=== PATIENT | female | born 1960 | race Caucasian/White ===

== ENCOUNTER 2022-01-26 09:22 | Emergency (ER) | payer OTHER ==
[~2022-01-26] VITALS: Wt 93.0 kg
[2022-01-26] MEDS ORDERED: IBU800 M2 PO (12:25)
[2022-01-26] MEDS ORDERED: ULTRAM50 MG PO (12:26)
== END 2022-01-26 14:37 | disposition home or self-care (01) ==
LOC: ED 09:22
DX: S83.8X2A Sprain of other specified parts of left knee, initial encounter (principal); Z88.0 Allergy status to penicillin; X50.0XXA Overexertion from strenuous movement or load, initial encounter; Y93.89 Activity, other specified; Y92.89 Other specified places as the place of occurrence of the external cause; Y99.8 Other external cause status

== ENCOUNTER 2022-06-14 12:13 | Emergency (ER) | payer OTHER ==
[~2022-06-14] VITALS: Ht 157.4 cm; Wt 93.0 kg
[~2022-06-14 12:13] MED LIST: IBU800 M2 PO; ULTRAM50 MG PO
== END 2022-06-14 16:25 | disposition home or self-care (01) ==
LOC: ED 12:13
DX: S61.210A Laceration without foreign body of right index finger without damage to nail, initial encounter (principal); Z88.0 Allergy status to penicillin; W45.8XXA Other foreign body or object entering through skin, initial encounter; Y93.89 Activity, other specified; Y92.89 Other specified places as the place of occurrence of the external cause; Y99.9 Unspecified external cause status

== ENCOUNTER 2023-05-19 22:14 | Emergency (ER) | payer OTHER ==
[~2023-05-19] VITALS: Ht 154.9 cm; Wt 100.2 kg
[2023-05-19] MEDS ORDERED: CYCLOBENZAPRINE5 M3 PO (22:38)
[2023-05-19] MEDS ORDERED: METHOCARBAMOL500 M1 PO (23:25)
[2023-05-19] MEDS ORDERED: NAPROXEN250 MG PO (23:25)
== END 2023-05-19 23:33 | disposition home or self-care (01) ==
LOC: ED 22:14
DX: S29.012A Strain of muscle and tendon of back wall of thorax, initial encounter (principal); I10 Essential (primary) hypertension; M19.90 Unspecified osteoarthritis, unspecified site; Z88.0 Allergy status to penicillin; F17.200 Nicotine dependence, unspecified, uncomplicated; X58.XXXA Exposure to other specified factors, initial encounter; Y93.89 Activity, other specified; Y92.009 Unspecified place in unspecified non-institutional (private) residence as the place of occurrence of the external cause; Y99.8 Other external cause status

== ENCOUNTER 2024-08-18 14:08 | Emergency (ER) | payer OTHER, MEDICARE ==
[~2024-08-18] VITALS: Ht 154.9 cm; Wt 98.9 kg
[~2024-08-18 14:08] MED LIST changes: +CYCLOBENZAPRINE5 M3 PO; +METHOCARBAMOL500 M1 PO; +NAPROXEN250 MG PO
[2024-08-18] MEDS ORDERED: methylPREDNISolone sod succ 125 MG VIAL IV ONE (14:30)
[2024-08-18] MEDS ORDERED: diphenhydrAMINE hydrochloride 50 MG/ML VIAL IV ONE (14:30)
[2024-08-18] MEDS ORDERED: EPINEPHrine Hydrochloride 1 MG/ML AMP IM ONE (14:30)
[2024-08-18] MEDS ORDERED: FAMOTIDINE 50 ML IV ONE (14:30)
[2024-08-18 15:04] LABS: BASO % 0.2 % (0.0-1.0); EOS # 0.3 10*3/uL (0.0-0.4); EOS % 2.7 % (1.0-4.0); HEMATOCRIT 47.8 % (37.0-47.0); LYMPH # 4.1 10*3/uL (1.3-4.4); LYMPH % 34.8 % (27.0-41.0); MEAN CELL VOLUME 92.8 fl (81.0-99.0); MEAN CORPUSCULAR HGB 29.9 pg (27.0-31.0); MEAN CORPUSCULAR HGB CONC 32.2 g/dl (33.0-37.0); MEAN PLATELET VOLUME 9.7 fl (9.6-12.3); MONO # 0.7 10*3/uL (0.1-1.0); MONO % 6.3 % (3.0-9.0); NEUT # 6.5 10*3/uL (2.3-7.9); NEUT % 55.2 % (47.0-73.0); PLATELET COUNT AUTOMATED 306 10*3/uL (130-400); RED BLOOD COUNT 5.15 10*6/uL (4.10-5.10); RED CELL DISTRI WIDTH 13.9 % (0-14.5); WHITE BLOOD COUNT 11.7 10*3/uL (4.8-10.8)
[2024-08-18] MEDS ORDERED: PREDNISONE50 MG PO (15:49)
== END 2024-08-18 18:28 | disposition home or self-care (01) ==
LOC: ED 14:08
PROVIDERS: Internal Medicine
DX: L50.9 Urticaria, unspecified (principal); T39.1X5A Adverse effect of 4-Aminophenol derivatives, initial encounter; I10 Essential (primary) hypertension; M19.90 Unspecified osteoarthritis, unspecified site; Z88.0 Allergy status to penicillin; Z91.010 Allergy to peanuts; Z88.8 Allergy status to other drugs, medicaments and biological substances; Y92.89 Other specified places as the place of occurrence of the external cause